=== PATIENT | male | born 1995 | race American Indian/Alaskan Native ===

== ENCOUNTER 2016-12-19 21:05 | Emergency (ER) | payer OTHER ==
[2016-12-19 21:15] VITALS: O2SAT 98
[2016-12-19 21:58] VITALS: BP 110/64; PULSE 84; RESP 20; TEMP 98.2
--- NOTE | 2016-12-19 22:04 | C.PDOC ---
History Of Present Illness 21 year old male patient, with a history of asthma and seizures, was brought in the ED via EMS with a c/o atraumatic neck pain that radiates towards the upper back. Pain is worse on movement. Patient notes back feeling better, but still reports pain. Patient notes having 2 drinks [employer]. Patient denies chest pain, SOB , no weakness or numbness of extremities, denies trauma. Time Seen by Provider: 12/19/16 21:24 Chief Complaint (Nursing): Back Pain History Per: Patient History/Exam Limitations: no limitations Onset/Duration Of Symptoms: Hrs Current Symptoms Are (Timing): Still Present Severity: Mild Recent travel outside of the [place]: No Past Medical History Reviewed: Historical Data, Nursing Documentation, Vital Signs Vital Signs: Last Vital Signs Temp 98.2 F 12/19/16 21:57 Pulse 84 12/19/16 21:57 Resp 20 12/19/16 21:57 BP 110/64 12/19/16 21:57 Pulse Ox 98 12/20/16 02:35 - Medical History PMH: Asthma, Seizures Family History: States: Unknown Family Hx - Social History Hx Alcohol Use: Yes Hx Substance Use: Yes (xanax and cannabis) - Immunization History Hx Tetanus Toxoid Vaccination: No Hx Influenza Vaccination: No Hx Pneumococcal Vaccination: No Review Of Systems Constitutional: Negative for: Fever Cardiovascular: Negative for: Chest Pain Respiratory: Negative for: Shortness of Breath, Pleuritic Pain Musculoskeletal: Positive for: Neck Pain, Back Pain (Upper back pain) Neurological: Negative for: Weakness, Numbness Physical Exam - Physical Exam Appears: Non-toxic, No Acute Distress, Other (+AOB) Skin: Warm, Dry Head: Atraumatic, Normacephalic Eye(s): bilateral: Normal Inspection, PERRL Neck: Normal ROM, No Midline Cervical Tenderness, Paracervical Tenderness ( Bilaterally) Chest: No Tenderness (No intercostal tenderness) Cardiovascular: Rhythm Regular Respiratory: Normal Breath Sounds Gastrointestinal/Abdominal: Soft, No Tenderness Back: No CVA Tenderness, No Vertebral Tenderness, No Decreased ROM, Paraspinal Tenderness (upper back- subscapular area), No Other (NO ecchymosis. ) Extremity: Normal ROM (Full ROM upper and lower extremity), No Pedal Edema, No Deformity Neurological/Psych: Oriented x3, Normal Speech Gait: Steady ED Course And Treatment O2 Sat by Pulse Oximetry: 98 (Room air) Pulse Ox Interpretation: Normal Medical Decision Making Medical Decision Making: Plans: -Motrin -Reassess and disposition Pt feels better, wants to leave Disposition Counseled Patient/Family Regarding: Diagnosis, Need For Followup, Rx Given - Disposition Referrals: [facility] [Outside] Disposition: HOME/ ROUTINE Disposition Time: 22:00 Condition: STABLE Additional Instructions: Take tylenol or advil for pain Return to ER if worse Instructions: Muscle Strain (ED) - Clinical Impression Clinical Impression: Muscle strain - Scribe Statement The provider has reviewed the documentation as recorded by the Scribe Duane Martin All medical record entries made by the Scribe were at my direction and personally dictated by me. I have reviewed the chart and agree that the record accurately reflects my personal performance of the history, physical exam, medical decision making, and the department course for this patient. I have also personally directed, reviewed, and agree with the discharge instructions and disposition.
== END 2016-12-19 22:11 | disposition home or self-care (01) ==
LOC: C.ER 21:05
DX: S16.1XXA Strain of muscle, fascia and tendon at neck level, initial encounter (principal); X58.XXXA Exposure to other specified factors, initial encounter; Y93.9 Activity, unspecified; Y92.9 Unspecified place or not applicable